=== PATIENT | male | born 1955 | race Caucasian/White ===

== ENCOUNTER → 2022-07-06 | Outpatient (CLI) | payer BC, OTHER, MEDICAID ==
[2022-07-06 17:10] LABS: RHEUMATOID FACTOR QUANT < 10.0 IU/ML (<15.0)
[2022-07-06 17:44] LABS: VITAMIN B12 LEVEL 470 PG/ML
== END ==
LOC: M PLALAB 09:23
PROVIDERS: ATTEND Psychiatry & Neurology Neurology
DX: R25.1 Tremor, unspecified (principal)

== ENCOUNTER → 2023-01-17 | Outpatient (CLI) | payer MEDICARE | LOC: M RAD 13:24 | PROVIDERS: ATTEND Psychiatry & Neurology Neurology | DX: D49.512 Neoplasm of unspecified behavior of left kidney (principal) ==

== ENCOUNTER → 2025-04-30 | Outpatient (CLI) | payer MEDICARE | LOC: M RAD 08:35 | DX: J98.11 Atelectasis (principal); I77.810 Thoracic aortic ectasia ==